=== PATIENT | male | born 1975 | race Caucasian/White ===

== ENCOUNTER → 2018-03-19 | Outpatient (CLI) | payer OTHER ==
--- NOTE | 2018-03-19 11:55 | RADIOLOGY IMAGING REPORT ---
[place] [facility] [place] Augustus Toledo : 1975 MR: [id number] V: [id number] EXAM DATE: ORDERING PHYSICIAN: ALISSON BIANCHI TECHNOLOGIST: Location: [facility] Patient: Augustus Toledo : 1975 Visit/Account:[id number] Date of Sevice: 03/19/2018 Exam type: SHOULDER MIN 2 VIEWS RIGHT History: Right shoulder pain, injured doing pushups two weeks ago Comparison: None. Findings: Two views of the right shoulder demonstrate no evidence of acute fracture or dislocation. Incidental ly noted are mild degenerative changes at the right AC joint IMPRESSION: 1. Mild degenerative changes of the right AC joint although no evidence of acute fracture-dislocatio n of the right shoulder Report Dictated By: Anna Whaley MD at 03/19/2018 11:51 AM Report E-Signed By: Anna Whaley MD at 03/19/2018 11:52 AM [id number]:[email or web address]
== END ==
LOC: RAD 10:27
PROVIDERS: ATTEND Family Medicine
DX: M19.011 Primary osteoarthritis, right shoulder (principal)

== ENCOUNTER → 2018-04-08 | Outpatient (CLI) | payer OTHER ==
--- NOTE | 2018-04-08 11:50 | RADIOLOGY IMAGING REPORT ---
FACILITY: [facility] PATIENT NAME: Augustus Toledo : 1975 MR: [id number] V: [id number] EXAM DATE: ORDERING PHYSICIAN: ALISSON BIANCHI TECHNOLOGIST: Location: [facility] [place] Patient: Augustus Toledo : 1975 Visit/Account:[id number] Date of Sevice: 04/08/2018 SHOULDER RIGHT W/O CONTRAST HISTORY: Shoulder pain COMPARISON: X-ray 03/19/2018 TECHNIQUE: Multiplanar/multisequence was obtained through the right shoulder without contrast. Contrast: None FINDINGS: Rotator cuff: Mild tendinosis of the supraspinatus tendon with mild articular surface partial tearing of its anterior fibers. Infraspinatus tendon is normal. Teres minor tendon is normal. Subscapularis tendon is normal. No full-thickness tear of the rotator cuff. No tendinous retraction. Mild fatty str eaking of the teres minor muscle. Subacromial/subdeltoid fluid: Small amount Joint effusion: None significant Biceps tendon: Resides within the bicipital groove and is intact to the labrum without signal abnorma lity. Glenohumeral joint and labrum: There is motion on coronal images. Probable nondisplaced tearing of th e superior labrum. Questionable tiny paralabral cyst at the superior-posterior corner. Articular cart ilage is intact. AC joint : Moderate proliferative changes with moderate bone marrow edema within the distal clavicle. Small inferior bony spurs. No significant lateral acromial downsloping. Acromium is type II. Bone marrow: Normal Soft tissues: Normal Other findings: None significant IMPRESSION: 1. Mild tendinosis with mild partial-thickness articular surface tearing of the anterior fibers of th e supraspinatus tendon at its insertion. No full-thickness tear of the rotator cuff. 2. Mild fatty streaking of the teres minor muscle which can be seen with denervation or quadrilateral space syndrome. 3. Probable nondisplaced tearing of the superior labrum with questionable tiny paralabral cyst at the superior-posterior corner. 4. Moderate proliferative changes with moderate bone marrow edema at the distal clavicle. Recommend c orrelation for pain at this site. Report Dictated By: Jason Cerda MD at 04/08/2018 11:32 AM Report E-Signed By: Jason Cerda MD at 04/08/2018 11:46 AM WSN:[email or web address]
== END ==
LOC: MRI 02:20
PROVIDERS: ATTEND Family Medicine
DX: M75.21 Bicipital tendinitis, right shoulder (principal)